=== PATIENT | male | born 1970 | race Two or more races ===

== ENCOUNTER 2017-08-28 07:48 | Outpatient (CLI) | payer OTHER ==
[~2017-08-28 07:48] MED LIST: ALTACE5 MG; CRESTOR5 MG
== END 2017-08-28 08:05 | disposition home or self-care (01) ==
LOC: LAB 07:48
DX: E55.9 Vitamin D deficiency, unspecified (principal); M85.9 Disorder of bone density and structure, unspecified; E21.3 Hyperparathyroidism, unspecified; M81.8 Other osteoporosis without current pathological fracture; E56.1 Deficiency of vitamin K; E03.8 Other specified hypothyroidism; E88.89 Other specified metabolic disorders; E83.42 Hypomagnesemia

== ENCOUNTER 2017-09-12 20:16 | Emergency (ER) | payer OTHER ==
[~2017-09-12] VITALS: Ht 152.4 cm; Wt 111.1 kg
== END 2017-09-12 22:55 | disposition home or self-care (01) ==
LOC: ER 20:16
DX: M79.661 Pain in right lower leg (principal)

== ENCOUNTER 2021-06-14 14:39 | Emergency (ER) | payer OTHER ==
[~2021-06-14] VITALS: Ht 180.3 cm; Wt 111.1 kg
[2021-06-14] MEDS ORDERED: PLAVIX (15:22)
[2021-06-14] MEDS ORDERED: TYLENOL (15:22)
[2021-06-14] MEDS ORDERED: ULTRAM50 MG PO (18:59)
[2021-06-14] MEDS ORDERED: CLEOCIN HCL150 MG PO (18:59)
== END 2021-06-14 19:55 | disposition home or self-care (01) ==
LOC: ER 14:39
DX: S46.812A Strain of other muscles, fascia and tendons at shoulder and upper arm level, left arm, initial encounter (principal); M25.512 Pain in left shoulder; X50.0XXA Overexertion from strenuous movement or load, initial encounter; Y93.89 Activity, other specified; Y92.69 Other specified industrial and construction area as the place of occurrence of the external cause; Y99.8 Other external cause status